=== PATIENT | male | born 1965 | race Caucasian/White ===

== ENCOUNTER 2016-11-02 17:26 | Emergency (ER) | payer MEDICARE, MEDICAID ==
[2016-11-02 19:28] LABS: BASO % 0.4 % (0-6); EOS % 3.7 % (0-6); GRAN % 51.6 % (47-80); HEMATOCRIT 43.2 % (42.0-52.0); HEMOGLOBIN 14.6 gm/dl (14.0-18.0); LYMPH % 33.3 % (16-45); MEAN CELL VOLUME 92.7 fl (81-97); MEAN CORPUSCULAR HEMOGLOBIN 31.3 pg (27-33); MEAN CORPUSCULAR HGB CONC 33.8 g/dl (32-36); MEAN PLATELET VOLUME 9.2 fl (7.4-10.4); PLATELET COUNT 285 K/uL (130-400); RED BLOOD COUNT 4.66 M/uL (4.40-5.70); RED CELL DISTRIBUTION WIDTH 13.1 % (11.5-14.5); WHITE BLOOD COUNT W/O DIFF 11.1 K/uL (4.2-12.2)
[2016-11-02 19:39] LABS: BLOOD UREA NITROGEN 9 mg/dL (9-20); CREATININE 0.8 mg/dL (0.66-1.25); EST GLOMERULAR FILTRATION RATE > 60 ml/min; GLUCOSE,RANDOM 82 mg/dL (70-110)
[2016-11-02 19:43] LABS: ANION GAP 7.5 (7-16); CARBON DIOXIDE 25.5 mmol/L (22-30)
[2016-11-02] MEDS ORDERED: AMOXICILLIN/POTASSIUM CLAV 875MG/125MG TABLET PO ONE (21:06)
--- NOTE | 2016-11-02 21:12 | Emergency Department Record ---
History of Present Illness - General Chief complaint: Abscess Stated complaint: "BOIL ON BOTTOM Time Seen by Provider: 11/02/16 18:39 Source: Patient Mode of Arrival: Ambulatory Limitations: No limitations - History of Present Illness Initial comments: pt has swelling and tenderness in perirectal area that is similar to previous boil complaint: Abscess/boil Onset/Timin -: Days(s) Location: Genitals Severity: Moderate Severity scale (1-10): 7 Improves with: Rest Worsens with: Palpation, Movement Context: None - Related Data Home Medications Medication Instructions Recorded Confirmed Last Taken [place]-3 Fatty Acids/Fish Oil [Fish 1 cap PO QD cap 11/30/15 04/14/16 1 Day Ago Oil 1,000 Mg Capsule] Previous Rx's Medication Instructions Recorded Amoxicillin/Potassium Clav 1 tab PO BID #20 tab 11/02/16 [Augmentin 875-125 Tablet] Allergies Allergy/AdvReac Type Severity Reaction Status Date / Time adhesive Allergy Intermediate BLISTERS Verified 11/02/16 19:27 Travel Screening - Travel/Exposure Within Last 30 Days Have you traveled within the last 30 days?: No - Travel Symptoms Symptom Screening: None Review of Systems Reviewed: No additional complaints except as noted below Constitutional: Reports: As per HPI. Denies: Chills, Fever, Malaise, Night sweats, Weakness, Weight change Eyes: Reports: As per HPI. Denies: Eye discharge, Eye pain, Photophobia, Vision change ENT: Reports: As per HPI. Denies: Congestion, Dental pain, Ear pain, Epistaxis , Hearing loss, Throat pain Respiratory: Reports: As per HPI. Denies: Cough, Dyspnea, Hemoptysis, Stridor, Wheezes Cardiovascular: Reports: As per HPI. Denies: Arrhythmia, Chest pain, Dyspnea on exertion, Edema, Murmurs, Orthopnea, Palpitations, Paroxysmal nocturnal dyspnea, Rheumatic Fever, Syncope Endocrine: Reports: As per HPI. Denies: Fatigue, Heat or cold intolerance, Polydipsia, Polyuria Gastrointestinal: Reports: As per HPI. Denies: Abdominal pain, Constipation, Diarrhea, Hematemesis, Hematochezia, Melena, Nausea, Vomiting Genitourinary: Reports: As per HPI. Denies: Dysuria, Frequency, Hematuria, Incontinence, Retention, Testicular pain, Testicular mass, Urgency Musculoskeletal: Reports: As per HPI. Denies: Arthralgia, Back pain, Gout, Joint swelling, Myalgia, Neck pain Skin: Reports: As per HPI. Denies: Bruising, Change in color, Change in hair/ nails, Lesions, Pruritus, Rash Neurological: Reports: As per HPI. Denies: Abnormal gait, Confusion, Headache, Numbness, Paresthesias, Seizure, Tingling, Tremors, Vertigo, Weakness Psychiatric: Reports: As per HPI. Denies: Anxiety, Auditory hallucinations, Depression, Homicidal thoughts, Suicidal thoughts, Visual hallucinations Hematological/Lymphatic: Reports: As per HPI. Denies: Anemia, Blood Clots, Easy bleeding, Easy bruising, Swollen glands Past Medical History - SOCIAL HISTORY Smoking Status: Current every day smoker - RESPIRATORY Hx Respiratory Disorders: No - CARDIOVASCULAR Hx Cardio Disorders: Yes Hx Hypertension: Yes - NEURO Hx Neuro Disorders: No - GI Hx GI Disorders: No - Hx Genitourinary Disorders: No - ENDOCRINE Hx Endocrine Disorders: Yes Hx Diabetes: Yes Hx Thyroid Disease: No - MUSCULOSKELETAL Hx Musculoskeletal Disorders: Yes Comment:: abscesses - PSYCH Hx Psych Problems: No - HEMATOLOGY/ONCOLOGY Hx Hematology/Oncology Disorders: No Family Medical History Any Significant Family History?: Yes Hx Cancer: Father Physical Exam - General General Appearance: Alert, Oriented x3, Cooperative, Mild distress - Head Head exam: Normal inspection - Eye Eye exam: Normal appearance, PERRL, EOMI Pupils: Normal accommodation - ENT ENT exam: Normal exam, Mucous membranes moist, Normal external ear exam, Normal orophraynx, TM's normal bilaterally Ear exam: Normal external inspection. negative: External canal tenderness Nasal Exam: Normal inspection. negative: Discharge, Sinus tenderness Mouth exam: Normal external inspection, Tongue normal Teeth exam: Normal inspection. negative: Dental caries Throat exam: Normal inspection. negative: Tonsillar erythema, Tonsillar exudate - Neck Neck exam: Normal inspection, Full ROM. negative: Tenderness - Respiratory Respiratory exam: Normal lung sounds bilaterally. negative: Respiratory distress - Cardiovascular Cardiovascular Exam: Regular rate, Normal rhythm, Normal heart sounds - GI/Abdominal GI/Abdominal exam: Soft, Normal bowel sounds. negative: Tenderness - Rectal Rectal exam: Tenderness, Other (hard tender lump anterior to rectum) - exam: Deferred - Extremities Extremities exam: Normal inspection, Full ROM, Normal capillary refill. negative: Tenderness - Back Back exam: Reports: Normal inspection, Full ROM. Denies: Muscle spasm, Rash noted, Tenderness - Neurological Neurological exam: Alert, CN II-XII intact, Normal gait, Oriented X3 - Psychiatric Psychiatric exam: Normal affect, Normal mood - Skin Skin exam: Dry, Intact, Normal color, Warm Course Vital Signs 11/02/16 18:55 Temperature 98.2 F Pulse Rate [ 81 Pulse Ox Probe] Respiratory 20 Rate Blood Pressure 159/73 [Left Arm] Pulse Ox 96 - Reevaluation(s) Reevaluation #1: 11/02/16 21:10 ct is neg Reevaluation #2: 11/02/16 21:10 d/w [place] Medical Decision Making - Lab Data Result diagrams: 11/02/16 19:21 11/02/16 19:21 Lab Results 11/02/16 11/02/16 Range/Units 19:21 19:21 WBC 11.1 (4.2-12.2) K/uL RBC 4.66 (4.40-5.70) M/uL Hgb 14.6 (14.0-18.0) gm/dl Hct 43.2 (42.0-52.0) % MCV 92.7 (81-97) fl MCH 31.3 (27-33) pg MCHC 33.8 (32-36) g/dl RDW 13.1 (11.5-14.5) % Plt Count 285 (130-400) K/uL MPV 9.2 (7.4-10.4) fl Gran % 51.6 (47-80) % Lymphocytes % 33.3 (16-45) % Monocytes % 11.0 H (0-9) % Eosinophils % 3.7 (0-6) % Basophils % 0.4 (0-6) % Sodium 139 (136-145) mmol/L Potassium 3.9 (3.5-5.1) mmol/L Chloride 106 (98-107) mmol/L Carbon Dioxide 25.5 (22-30) mmol/L Anion Gap 7.5 (7-16) BUN 9 (9-20) mg/dL Creatinine 0.8 (0.66-1.25) mg/dL Estimated GFR > 60 ml/min Random Glucose 82 (70-110) mg/dL Calcium 9.0 (8.5-10.1) mg/dL Disposition Disposition: Discharge Clinical Impression: Cellulitis Qualifiers: Site of cellulitis: buttock Qualified Code(s): L03.317 - Cellulitis of buttock Disposition: Home, Self-Care Condition: (1) Good Instructions: Cellulitis (ED) Additional Instructions: follow up with family doctor tomorrow. return sooner if worse. sitz baths 3x a day or moist heat Prescriptions: Amoxicillin/Potassium Clav [Augmentin 875-125 Tablet] 1 tab PO BID #20 tab Forms: Patient Portal Access
--- NOTE | 2016-11-06 07:43 | CT SCAN REPORT ---
EXAM: CT SCAN OF THE PELVIS WITHOUT CONTRAST HISTORY: PATIENT HAS A BOIL IN THE GLUTEAL REGION. TECHNIQUE: Serial axial CT scan of the pelvis was performed at 2.5 mm intervals from the iliac crest to the pubic symphysis without the use of intravenous or oral contrast. Comparison: CT scan of the abdomen and pelvis dated 03/08/15 is provided. FINDINGS: Bone windows of the pelvis demonstrate no CT evidence of a fracture or dislocation of the osseous structures of the pelvis. Postoperative changes in the lumbar spine are identified. The visualized bowel gas pattern is nonspecific and nonobstructive. Colonic diverticula are noted without CT evidence of diverticulitis. The urinary bladder and prostate are unremarkable. 2.3 cm fat containing right indirect inguinal hernia is noted which is unchanged with respect to the prior CT scan. The contour and caliber of the visualized pelvic arteries are unremarkable. There is no CT evidence of retroperitoneal, pelvic, or inguinal lymphadenopathy within the visualized pelvis. The boil described by the patient's clinical history within the gluteal region cannot be identified on the current examination. No obvious cellulitis of the gluteal region is noted. IMPRESSION: 1. NO CT EVIDENCE OF AN ACUTE PROCESS INVOLVING THE PELVIS. 2. THE PATIENT'S GIVEN CLINICAL HISTORY OF BOIL IN THE GLUTEAL REGION CANNOT BE IDENTIFIED ON THE CURRENT EXAMINATION. JOB NUMBER: [id number] MTDD
== END 2016-11-02 21:33 | disposition home or self-care (01) ==
LOC: ER 17:26
DX: L03.317 Cellulitis of buttock (principal)
CPT/HCPCS: 72192; 80048; 85025; 99283; 99284

== ENCOUNTER 2016-11-09 15:19 | Emergency (ER) | payer MEDICARE, MEDICAID ==
[2016-11-09] MEDS ORDERED: HYDROCODONE/APAP 7.5/325MG TABLET PO ONE (15:47)
[2016-11-09] MEDS ORDERED: IBUPROFEN 600 MG TABLET PO ONE (15:49)
--- NOTE | 2016-11-09 17:00 | Emergency Department Record ---
History of Present Illness - General Chief complaint: Extremity Problem Stated complaint: INJURY RT ARM Time Seen by Provider: 11/09/16 15:41 Source: Patient Mode of Arrival: Ambulatory Limitations: No limitations - History of Present Illness Initial comments: pt was lifting and felt a pop and pain in his arm. the night before he strained his forearm. Complaint: Extremity pain, Extremity swelling Onset/Timin -: Days(s) Location: Right, Arm, Forearm History of Same: No Severity scale (1-10): 8 Quality: Aching, Other Consistency: Constant Improves with: Nothing Worsens with: Nothing Associated Symptoms: Denies other symptoms - Related Data Home Medications Medication Instructions Recorded Confirmed Last Taken [place]-3 Fatty Acids/Fish Oil [Fish 1 cap PO QD cap 11/30/15 11/09/16 11/09/16 Oil 1,000 Mg Capsule] Previous Rx's Medication Instructions Recorded Amoxicillin/Potassium Clav 1 tab PO BID #20 tab 11/02/16 [Augmentin 875-125 Tablet] Hydrocodone/Acetaminophen [[place] 1 tab PO Q6H PRN #14 tab 11/09/16 5mg/325mg] Allergies Allergy/AdvReac Type Severity Reaction Status Date / Time adhesive Allergy Intermediate BLISTERS Verified 11/09/16 15:24 Travel Screening - Travel/Exposure Within Last 30 Days Have you traveled within the last 30 days?: No - Travel/Exposure Within Last Year Have you traveled outside the [place] in the last year?: No - Additonal Travel Details Have you been exposed to anyone with a communicable illness?: No - Travel Symptoms Symptom Screening: None Review of Systems Reviewed: No additional complaints except as noted below Constitutional: Reports: As per HPI. Denies: Chills, Fever, Malaise, Night sweats, Weakness, Weight change Eyes: Reports: As per HPI. Denies: Eye discharge, Eye pain, Photophobia, Vision change ENT: Reports: As per HPI. Denies: Congestion, Dental pain, Ear pain, Epistaxis , Hearing loss, Throat pain Respiratory: Reports: As per HPI. Denies: Cough, Dyspnea, Hemoptysis, Stridor, Wheezes Cardiovascular: Reports: As per HPI. Denies: Arrhythmia, Chest pain, Dyspnea on exertion, Edema, Murmurs, Orthopnea, Palpitations, Paroxysmal nocturnal dyspnea, Rheumatic Fever, Syncope Endocrine: Reports: As per HPI. Denies: Fatigue, Heat or cold intolerance, Polydipsia, Polyuria Gastrointestinal: Reports: As per HPI. Denies: Abdominal pain, Constipation, Diarrhea, Hematemesis, Hematochezia, Melena, Nausea, Vomiting Genitourinary: Reports: As per HPI. Denies: Dysuria, Frequency, Hematuria, Incontinence, Retention, Testicular pain, Testicular mass, Urgency Musculoskeletal: Reports: As per HPI. Denies: Arthralgia, Back pain, Gout, Joint swelling, Myalgia, Neck pain Skin: Reports: As per HPI. Denies: Bruising, Change in color, Change in hair/ nails, Lesions, Pruritus, Rash Neurological: Reports: As per HPI. Denies: Abnormal gait, Confusion, Headache, Numbness, Paresthesias, Seizure, Tingling, Tremors, Vertigo, Weakness Psychiatric: Reports: As per HPI. Denies: Anxiety, Auditory hallucinations, Depression, Homicidal thoughts, Suicidal thoughts, Visual hallucinations Hematological/Lymphatic: Reports: As per HPI. Denies: Anemia, Blood Clots, Easy bleeding, Easy bruising, Swollen glands Past Medical History - SOCIAL HISTORY Smoking Status: Current every day smoker Alcohol Use: None Drug Use Detail:: Marijuana - RESPIRATORY Hx Respiratory Disorders: No - CARDIOVASCULAR Hx Cardio Disorders: Yes Hx Hypertension: Yes - NEURO Hx Neuro Disorders: No - GI Hx GI Disorders: No - Hx Genitourinary Disorders: No - ENDOCRINE Hx Endocrine Disorders: Yes Hx Diabetes: Yes Hx Thyroid Disease: No - MUSCULOSKELETAL Hx Musculoskeletal Disorders: Yes Comment:: abscesses - PSYCH Hx Psych Problems: No - HEMATOLOGY/ONCOLOGY Hx Hematology/Oncology Disorders: No Family Medical History Any Significant Family History?: Yes Hx Cancer: Father Physical Exam - General General Appearance: Alert, Oriented x3, Cooperative, Mild distress - Head Head exam: Normal inspection - Eye Eye exam: Normal appearance, PERRL, EOMI Pupils: Normal accommodation - ENT ENT exam: Normal exam, Mucous membranes moist, Normal external ear exam, Normal orophraynx Ear exam: Normal external inspection. negative: External canal tenderness Nasal Exam: Normal inspection. negative: Discharge, Sinus tenderness Mouth exam: Normal external inspection, Tongue normal Teeth exam: Normal inspection. negative: Dental caries Throat exam: Normal inspection. negative: Tonsillar erythema, Tonsillar exudate - Neck Neck exam: Normal inspection, Full ROM. negative: Tenderness - Respiratory Respiratory exam: Normal lung sounds bilaterally. negative: Respiratory distress - Cardiovascular Cardiovascular Exam: Regular rate, Normal rhythm, Normal heart sounds - GI/Abdominal GI/Abdominal exam: Soft, Normal bowel sounds. negative: Tenderness - Rectal Rectal exam: Deferred - exam: Deferred - Extremities Extremities exam: Normal inspection, Full ROM, Normal capillary refill, Tenderness Image of Full Body: 1 - tender w bunched up biceps - Back Back exam: Reports: Normal inspection, Full ROM. Denies: Muscle spasm, Rash noted, Tenderness - Neurological Neurological exam: Alert, CN II-XII intact, Normal gait, Oriented X3 - Psychiatric Psychiatric exam: Normal affect, Normal mood - Skin Skin exam: Dry, Intact, Normal color, Warm Course Vital Signs 11/09/16 15:28 Temperature 97.7 F Pulse Rate 97 H Respiratory 20 Rate Blood Pressure 108/70 Pulse Ox 97 - Reevaluation(s) Reevaluation #1: 11/09/16 17:02 d/w dr erickson Disposition Disposition: Discharge Clinical Impression: Biceps rupture, distal Qualifiers: Encounter type: initial encounter Laterality: right Qualified Code(s): S46.211A - Strain of muscle, fascia and tendon of other parts of biceps, right arm, initial encounter Disposition: Home, Self-Care Condition: (1) Good Instructions: Tendon Rupture (ED) Additional Instructions: follow up with doctor georgina. return sooner if worse. ice to arm. Prescriptions: Hydrocodone/Acetaminophen [[place] 5mg/325mg] 1 tab PO Q6H PRN #14 tab PRN Reason: Pain - General Referrals: ARABELLA ERICKSON [DOCTOR OF OSTEOPATH] - [facility] [Provider Group] Forms: Patient Portal Access
--- NOTE | 2016-11-13 11:00 | RADIOLOGY REPORT ---
EXAM: RIGHT HUMERUS HISTORY: INJURY, FELT A POP WHILE LIFTING A HEAVY OBJECT TODAY. TECHNIQUE: AP and lateral views of the right humerus were obtained. Comparison: None. Encounter: Initial. FINDINGS: No definite fracture of the right humerus identified. If there is suspicion of soft tissue injury, follow-up MRI of the right arm may be useful for further evaluation if clinically warranted. Degenerative change at the acromioclavicular joint. IMPRESSION: NO DEFINITE FRACTURE OF THE RIGHT HUMERUS IDENTIFIED. JOB NUMBER: [id number] MTDD
== END 2016-11-09 17:16 | disposition home or self-care (01) ==
LOC: ER 15:19
DX: S46.211A Strain of muscle, fascia and tendon of other parts of biceps, right arm, initial encounter (principal); X50.9XXA Other and unspecified overexertion or strenuous movements or postures, initial encounter
CPT/HCPCS: 99283

== ENCOUNTER 2016-11-14 10:59 | Day surgery (SDC) | payer MEDICARE, MEDICAID ==
[~2016-11-14 10:59] MED LIST: ACETAMINOPHEN 1000MG/100 ML PREMIX IV ONE; CEFAZOLIN 2 Gram 50 ML IVPB ONE; FAMOTIDINE 20MG TABLET PO ONE; MECLIZINE 25 MG TABLET PO ONE; METOCLOPRAMIDE 10 MG TABLET PO ONE
[2016-11-14] MEDS ORDERED: PROPOFOL 10 MG/ML VIAL IV ONE (14:00)
[2016-11-14] MEDS ORDERED: HYDROMORPHONE HCL 2 MG/ML VIAL IV ONE (14:00)
[2016-11-14] MEDS ORDERED: KETOROLAC 30 MG/ML VIAL IVP ONE (14:00)
[2016-11-14] MEDS ORDERED: SEVOFLURANE 250 ML INH ONE (14:00)
[2016-11-14] MEDS ORDERED: LIDOCAINE 2% MDV (20MG/ML) 20ML VIAL IV ONE (14:00)
[2016-11-14] MEDS ORDERED: FENTANYL PF 100MCG/2ML VIAL IV ONE (14:00)
[2016-11-14] MEDS ORDERED: MIDAZOLAM HCL 2MG/2ML VIAL IV ONE (14:00)
[2016-11-14] MEDS ORDERED: HYDROCODONE/APAP 7.5/325MG TABLET PO ONE (14:00)
[2016-11-14] MEDS ORDERED: EPHEDRINE SULFATE 50 MG/ML ML IV ONE (14:00)
[2016-11-14] MEDS ORDERED: ONDANSETRON HCL IV 4 MG/2 ML VIAL IVP ONE (14:00)
--- NOTE | 2016-11-17 10:00 | Operative Note ---
DATE OF SURGERY: 11/14/2016 Surgeon: Evert Andrade DO PREOPERATIVE DIAGNOSIS: Rupture of the distal right biceps tendon. POSTOPERATIVE DIAGNOSIS: Rupture of the distal right biceps tendon. OPERATION: Open repair of distal biceps tendon, right elbow. DESCRIPTION OF PROCEDURE: This 51-year-old male was taken to the operating room , placed in the supine position on the operating room table. General anesthesia was induced and the right upper extremity was elevated, prepped with Hibiclens, and draped in the usual sterile fashion. It was exsanguinated and the tourniquet inflated to 250 mmHg. A slightly curvilinear incision was made in the anterior aspect of the elbow in the antecubital fossa directly over the biceps tendon. The biceps was easily identified and grasped and debrided to remove all clot and debris from the tendon. The tendon appeared to be completely avulsed from its insertion into the tuberosity of the radius. Subsequently we placed a #2 fiber tape through the tendon weaving in the krackow fashion and the sutures were then exiting the distal end of the tendon. We then directed our attention to the posterior aspect of the proximal forearm, and dissection was carried down the through the skin and subcutaneous tissue. An incision approximately 4 inches in length. Fascia was divided in line with the skin incision. Muscle splitting technique was used to expose the radial tuberosity. This was thoroughly debrided with a rongeur, and subsequently a hole was drilled in the tuberosity and enlarged with a rongeur to accommodate the tendon. Subsequently 2 additional drill holes were made on the opposite cortex of the radius across from the tuberosity. Subsequently the sutures were passed through the forearm and exited the posterior aspect. A Franks suture passer was passed through the small holes and into the open hole in the tuberosity, and the sutures were then placed through the Franks suture passer and exited the holes. Tension was then placed on the sutures to bring the tendon down into the hole previously prepared. We then visualized the tendon entering the hole and felt that it was satisfactory. Subsequently the sutures were tied on the opposite side of the radius. This was felt to be a satisfactory repair. The wound was copiously irrigated with lactated Ringer's solution. The posterior muscle fascia was reapproximated with 4-0 Vicryl and the skin was closed with a running 4-0 nylon suture. Anteriorly the subcutaneous tissue was closed with 4-0 Vicryl and the skin with a running 4-0 nylon suture. Sterile dressings were applied with a plaster splint, immobilization with elbow flexed at 90 degrees in slight supination, and the patient was awakened and taken to the recovery room in satisfactory condition. GROSS PATHOLOGY: This patient has a complete avulsion of the biceps tendon from the insertion into the radial tuberosity as described. Evert Andrade DO CC: HETAL Espinosa
== END 2016-11-14 15:36 | disposition home or self-care (01) ==
LOC: SUR 10:59
PROVIDERS: ATTEND Orthopaedic Surgery
DX: S46.291A Other injury of muscle, fascia and tendon of other parts of biceps, right arm, initial encounter (principal); I10 Essential (primary) hypertension; E78.00 Pure hypercholesterolemia, unspecified; E11.9 Type 2 diabetes mellitus without complications; Z79.4 Long term (current) use of insulin
CPT/HCPCS: J1885; J2405

== ENCOUNTER 2017-08-18 10:19 | Emergency (ER) | payer MEDICARE, MEDICAID ==
--- NOTE | 2017-08-18 10:58 | Emergency Department Record ---
History of Present Illness - General Chief Complaint: Fall Injury Stated Complaint: FALL Time Seen by Provider: 08/18/17 10:48 Source: Patient Mode of Arrival: Ambulatory Limitations: No limitations - History of Present Illness Initial Comments: The patient is here due to slipping and falling onto his buttocks yesterday and now he has a large bruise present. He also has a hx of having rods and screws in his low back and would like to make sure they did not move or displace. He has a long hx of chronic back pain and takes multiple medicines for it. He states he always has numbness to the lateral 3 toes on his L foot but now the bottom of his big toe seems slightly numb also. He denies any weakness to his legs or any bowel or bladder incontinence or inability to go. The patient did drive here to the ER and is ambulating normally reportedly. MD Complaint: Fall Onset/Timin -: Days(s) Fall From: Down stairs (#) When Fall Occurred: # Days [employer] Fall Witnessed: No Place Fall Occurred: Home Loss of Consciousness: None Prolonged Down Time?: No Symptoms Prior to Fall: None Location: Back, Buttocks, Other Severity scale (1-10): 7 Quality: Aching Associated Symptoms: Denies - [place] Coma Scale Eye Response: (4) Open spontaneously Motor Response: (6) Obeys commands Verbal Response: (5) Oriented Berta Total: 15 - Related Data Home Medications Medication Instructions Recorded Confirmed Last Taken Insulin Detemir [Levemir] 50 unit SQ QHS 08/18/17 08/18/17 08/17/17 Allergies Allergy/AdvReac Type Severity Reaction Status Date / Time adhesive Allergy Intermediate BLISTERS Verified 08/18/17 10:44 Travel Screening - Travel/Exposure Within Last 30 Days Have you traveled within the last 30 days?: No Review of Systems Constitutional: Denies: Chills, Fever Eyes: Denies: Eye discharge ENT: Denies: Congestion Respiratory: Denies: Cough, Dyspnea Past Medical History - SOCIAL HISTORY Smoking Status: Current every day smoker Alcohol Use: None Drug Use: Occasional Drug Use Detail:: Marijuana - RESPIRATORY Hx Respiratory Disorders: No - CARDIOVASCULAR Hx Cardio Disorders: Yes Hx Hypertension: Yes Comment:: high cholesterol - NEURO Hx Neuro Disorders: Yes Hx Headaches: Yes (occass) Hx Neuropathy: Yes (left leg and foot) - GI Hx GI Disorders: Yes Hx Reflux: Yes - Hx Genitourinary Disorders: No - ENDOCRINE Hx Endocrine Disorders: Yes Hx Diabetes: Yes Hx Thyroid Disease: No - MUSCULOSKELETAL Hx Musculoskeletal Disorders: Yes Hx Arthritis: Yes Hx Back Injury: Yes - PSYCH Hx Psych Problems: Yes Hx Depression: Yes - HEMATOLOGY/ONCOLOGY Hx Hematology/Oncology Disorders: No Family Medical History Any Significant Family History?: Yes Hx Cancer: Father Physical Exam - General General Appearance: Alert, Oriented x3, Cooperative, No acute distress - Head Head exam: Atraumatic, Normocephalic, Normal inspection - Eye Eye exam: Normal appearance, PERRL - Neck Neck exam: Normal inspection, Full ROM. negative: Tenderness - Respiratory Respiratory exam: Normal lung sounds bilaterally. negative: Respiratory distress - Cardiovascular Cardiovascular Exam: Regular rate, Normal rhythm, Normal heart sounds - GI/Abdominal GI/Abdominal exam: Soft, Normal bowel sounds. negative: Tenderness - Extremities Extremities exam: Normal inspection, Full ROM, Normal capillary refill. negative: Tenderness - Back Back exam: Reports: Normal inspection, Other (There is a large bruise and tenderness to the L buttocks over the sacrum and laterally.). Denies: Vertebral tenderness - Neurological Neurological exam: Alert, Normal gait, Oriented X3, Reflexes normal (the patellar reflexes and achilles reflexes are 1+ and equal bilaterally.). negative: Abnormal gait, Altered, Motor sensory deficit Course Vital Signs 08/18/17 10:39 Temperature 97.6 F Pulse Rate 102 H Respiratory 20 Rate Blood Pressure 149/82 Pulse Ox 95 - Reevaluation(s) Reevaluation #1: The patient is doing OK at this time. He is up walking normally with some pain. The xrays do not demonstrate any acute abnormality. The patient did get set up with an appointment with his PCP for tomorrow. 08/18/17 12:16 Medical Decision Making - Data Complexity MDM Data: X-Ray Ordered and/or Reviewed - Radiology Data Radiology results: Report reviewed (Lumbar and sacrum: No acute abnormalities.) Disposition Disposition: Discharge Clinical Impression: Chronic low back pain Qualifiers: Back pain laterality: unspecified Sciatica presence: unspecified whether sciatica present Qualified Code(s): M54.5 - Low back pain Disposition: Home, Self-Care Condition: (2) Stable Instructions: Chronic Back Pain (ED) Additional Instructions: Please continue your regular medicines. Please see your PCP tomorrow as planned. Return to the Er for any worsening symptoms, increased pain, any bowel or bladder issues or leg weakness. Forms: Patient Portal Access Time of Disposition: 12:19 Quality - Quality Measures Quality Measures: N/A - Blood Pressure Screening View Details: Yes Does Patient Have Any of the Following: No Blood Pressure Classification: Pre-Hypertensive BP Reading Systolic Measurement: 127 Diastolic Measurement: 76 Screening for High Blood Pressure: < Pre-Hypertensive BP, F/U Documented > [ [id number]] Pre-Hypertensive Follow-up Interventions: Referral to alternative/primary care provider.
--- NOTE | 2017-08-19 08:59 | RADIOLOGY REPORT ---
EXAM: LUMBAR SPINE COMPLETE HISTORY: PAIN AND BRUISING OF LEFT BUTTOCK POST FALL LAST NIGHT. TECHNIQUE: AP, lateral and oblique views of the lumbar spine were obtained as well as a spot lateral view of the lumbosacral junction. Comparison: Radiographic examination of the lumbar spine dated 12/24/14. FINDINGS: There is normal bone mineralization. Five non-rib bearing lumbar type vertebra are identified. Changes of unroofing of L4 and L5 redemonstrated and there is redemonstration of posterior fusion of L3 through S1 with the orthopedic hardware appearing stable. There is again noted minor reversal of the normal cervical lordosis centered at the L3-L4 level, stable. The vertebral bodies are otherwise normal in alignment and height. No acute fracture nor destructive bone lesion. Multilevel degenerative disk and posterior element changes redemonstrated. An interbody spacer is present at the L5-S1 level. Diffuse atherosclerosis again noted. Mild degenerative changes of the sacroiliac joints. IMPRESSION: 1. STABLE RADIOGRAPHIC APPEARANCE OF THE LUMBAR SPINE SINCE 12/24/14 WITH POSTERIOR FUSION OF L3 THROUGH S1 REDEMONSTRATED. 2. MILD DEGENERATIVE CHANGES OF THE SACROILIAC JOINTS. JOB NUMBER: [id number] [facility]
--- NOTE | 2017-08-19 09:03 | RADIOLOGY REPORT ---
EXAM: SACRUM AND COCCYX HISTORY: LEFT BUTTOCK PAIN POST FALL LAST NIGHT. TECHNIQUE: Three views of the sacrum and coccyx were obtained. Comparison: Same day radiographic examination of the lumbar spine. FINDINGS: There is normal bone mineralization. Post laminectomy changes of L4 and L5 redemonstrated. Posterior fusion of L3 through S1 redemonstrated with bilateral pedicle screws and interconnecting rods remaining in place, not significantly changed since radiographic examination of the lumbar spine dated . No convincing acute fracture. Multilevel degenerative changes of the visualized spine. Degenerative changes of the hips and sacroiliac joints. The arcuate lines of the sacrum appear intact. IMPRESSION: 1. NO CONVINCING ACUTE FRACTURE, SUBLUXATION, NOR DISLOCATION. 2. EXTENSIVE POST SURGICAL CHANGES REDEMONSTRATED IN THE LUMBAR SPINE. DEGENERATIVE CHANGES. JOB NUMBER: [id number] [facility]
== END 2017-08-18 12:27 | disposition home or self-care (01) ==
LOC: ER 10:19
DX: S30.0XXA Contusion of lower back and pelvis, initial encounter (principal); M54.5 Low back pain; R20.0 Anesthesia of skin; I10 Essential (primary) hypertension; F17.210 Nicotine dependence, cigarettes, uncomplicated; W10.9XXA Fall (on) (from) unspecified stairs and steps, initial encounter; Y92.009 Unspecified place in unspecified non-institutional (private) residence as the place of occurrence of the external cause
CPT/HCPCS: 72110; 72220; 99283; 99284